=== PATIENT | male | born 1945 | race Caucasian/White ===

== ENCOUNTER 2021-06-24 12:44 | Emergency (ER) | payer OTHER, SELFPAY ==
--- NOTE | ~2021-06-24 | XR_ITS ---
EXAMINATION: XR chest 2V EXAM DATE: 06/24/2021 13:23 INDICATION: Shortness of breath worsening in last 3 days. History COPD. TECHNIQUE: Frontal and lateral projections of the chest obtained and reviewed. There is no prior ami dy for comparison. FINDINGS: There is an approximately 1 cm nodular density projecting over the right upper lobe, 2nd ri b chondral cartilage. Possibly identified on the lateral projection, is overlying the spine. Indeterm inate density for which follow-up chest CT without contrast recommended. The lungs are hyperinflated which can be seen with chronic obstructive pulmonary disease (a clinical diagnosis of functional impairment), but is not diagnostic of it. Some prominent perihilar reticulati on could be from underlying emphysema but edema or atypical pneumonia not excludable. No confluent co nsolidation, pneumothorax or pleural effusion suspected. There are cardiac silhouette from the hyperi nflated lungs. IMPRESSION: 1. Indeterminate right upper lobe nodular density; nonemergent chest CT without contrast. 2. Prominent perihilar reticulation, possible edema or atypical pneumonia. 3. Severe hyperinflation. Reviewed, dictated and finalized at location A. [employer] IMPRESSION: 1. Indeterminate right upper lobe nodular density; nonemergent chest CT withou t contrast. 2. Prominent perihilar reticulation, possible edema or atypical pneumonia. 3. Severe hyperinflation.
--- NOTE | 2021-06-24 12:50 | ED.SOB ---
HPI - SOB/Dyspnea General Chief Complaint: Shortness of Breath/Dyspnea Stated Complaint: Shortness of breath Time Seen by Provider: 06/24/21 12:47 Source: patient, family and RN notes reviewed History of Present Illness HPI Narrative: Patient is a 75-year-old male who presents the urgent care with complaints of shortness of breath, chest tightness and severe cough. Patient states that he does have a history of COPD and uses several inhalers daily. Patient states that for the last 3 days he has had worsening symptoms and has been using his inhalers approximately 20 times per day. Patient has also been using his Spiriva 6 times per day. Patient denies of any fevers, nausea, vomiting. Denies of chest pain. Patient has not taken anything else [id number] for his symptoms. Patient does appear visibly short of breath but no audible wheezing. No other acute complaints. Patient aware of the plan of care. Some parts of this dictation were generated by voice recognition software and may contain typographical and/or grammatical inaccuracies. Related Data Allergies Allergy/AdvReac Type Severity Reaction Status Date / Time Penicillins Allergy Other Verified 06/24/21 13:34 Review of Systems Review of Systems: CONSTITUTIONAL: Denies fever, chills, or sweats. EYES: Denies visual changes, redness, or discharge. ENT: Denies rhinorrhea, congestion, sore throat, or otalgia. CARDIOVASCULAR: Denies chest pain, palpitations, or edema. RESPIRATORY: Reports of cough, increased dyspnea, and chest tightness GASTROINTESTINAL: Denies abdominal pain, nausea, vomiting, or diarrhea. GENITOURINARY: Denies dysuria or hematuria. SKIN: Denies rash or itching. MUSCULOSKELETAL: Denies back pain, joint pain, or myalgia. NEUROLOGIC: Denies headache, numbness, or weakness. All other systems reviewed are negative, except as documented in HPI. PMFSH Comments At the time of my signature, I reviewed and agree with the nursing past medical, surgical, social, and family history. There is no relevant family history pertinent to the patient complaint. Exam Narrative: GENERAL: This is a well-nourished, well-developed patient, in no apparent distress. HEAD: normocephalic, atraumatic. EYES: PERRL. Sclera clear/white. Vision is grossly intact. EARS: External ears normal NOSE: External nose normal with no obvious nasal discharge, nares without redness, no rhinorrhea. THROAT: Mucous membranes moist, mild postnasal drainage NECK: Neck supple CARDIOVASCULAR: Regular rate and rhythm without murmurs, gallops, or rubs. RESPIRATORY: Tachypneic; decreased throughout. Very tight and mild expiratory wheeze to the right upper and lower SKIN: warm, intact with no suspicious lesions or rash, good texture and turgor. NEURO: awake, alert, and oriented to person, place and time. There were no obvious focal neurologic abnormalities. EXTREMITIES: No clubbing, cyanosis, or edema. Course Vital Signs Vital signs: Vital Signs Temperature 99.2 F 06/24/21 12:54 Pulse Rate 98 06/24/21 12:54 Respiratory Rate 18 06/24/21 12:54 Blood Pressure 109/72 06/24/21 12:54 Pulse Oximetry 97 06/24/21 12:54 Temperature 99.2 F 06/24/21 12:54 Pulse Rate 98 06/24/21 12:54 Respiratory Rate 18 06/24/21 12:54 Blood Pressure 109/72 06/24/21 12:54 Pulse Oximetry 97 06/24/21 12:54 Reviewed Transfer Transfered to: [facility] Transportation: BLS Transfer rationale: Severe shortness of breath for further evaluation and treatment Accepting physician: Dr. Elise MDM - SOB/Dyspnea MDM Narrative Medical decision making narrative: Reviewed EKG results with the patient and family friend. He is aware the EKG does not appear to have any acute changes however there is no past EKG for comparison. There is a borderline ST abnormality. Reviewed x-ray results with the patient. He is aware that x-ray is showing a plethora of abnormalities and he should be sent to the
[2021-06-24 12:54] VITALS: BP 109/72; PULSE 98; RESP 28; TEMP 37.3; O2SAT 97
--- NOTE | 2021-06-24 13:11 | ECG_ITS ---
Measurements Intervals [place] Rate: 94 P: 88 KS: 138 QRS: 90 QRSD: 101 T: 78 QT: 345 QTc: 432 Interpretive Statements SINUS RHYTHM INCOMPLETE RIGHT BUNDLE BRANCH BLOCK LOW QRS VOLTAGE IN PRECORDIAL LEADS BORDERLINE ST ABNORMALITY- INFERIOR LEADS BASELINE ARTIFACT- II, III, V1-V3 BORDERLINE ECG Electronically Signed On 06-24-2021 13:14:35 [employer]ISMOLOG[employer] TECHNICAL OFFICER by Tyrell Hanson D.O.
[2021-06-24] MEDS: ALBUTEROL SULFATE NEB 2.5 MG/3 ML INH INHALATION (13:36)
[2021-06-24 14:00] VITALS: PULSE 90; RESP 26; O2SAT 96
== END 2021-06-24 14:05 | disposition short-term general hospital (02) ==
PROVIDERS: Emergency Provider Nurse Practitioner Family
DX: J44.1 Chronic obstructive pulmonary disease with (acute) exacerbation (principal); R91.8 Other nonspecific abnormal finding of lung field; Z20.822 Contact with and (suspected) exposure to COVID-19; I45.10 Unspecified right bundle-branch block
CPT/HCPCS: 71046; 87426; 93005; 94640; 99215; C9803; G0463